=== PATIENT | female | born 1985 ===

== ENCOUNTER 2016-10-12 17:25 | Observation (INO) | payer MEDICAID, OTHER ==
[2016-10-12 17:25] VITALS: BMI 22.6
[2016-10-12] MEDS ORDERED: Sodium Chloride 0.9% 1,000 ML IV STA (18:03)
[2016-10-12] MEDS ORDERED: Iohexol 240 (50 ml) PO ONE (18:05)
--- NOTE | 2016-10-12 18:10 | ED PDOC ---
HPI: General Adult Time Seen by Provider: 10/12/16 17:54 Chief Complaint (Nursing): Dizziness/Lightheaded Chief Complaint (Provider): Dizziness and abd pain History Per: Patient History/Exam Limitations: no limitations Onset/Duration Of Symptoms: Days (Yesterday) Have you had recent travel within the past 21 days to any of the following countries: [place], [place], [place] or [place]?: No Current Symptoms Are (Timing): Still Present Additional Complaint(s): Pt. with dizziness like spinning sensation constant since last night. Also with lower abd pain constant since yesterday. Today she developed bloody stool. No headaches, chest pain, numbness, tingles, weakness, back pain, dysuria, vaginal dc. LMP 2 weeks ago. No leg pain. No nausea, vomit. No new food or drinks. Past Medical History Reviewed: Historical Data, Nursing Documentation, Vital Signs Vital Signs: Last Vital Signs Temp 98.9 F 10/12/16 17:27 Pulse 77 10/12/16 17:27 Resp 16 10/12/16 17:27 BP 104/63 10/12/16 17:27 Pulse Ox 98 10/12/16 18:15 - Medical History PMH: Migraine - Surgical History Surgical History: Appendectomy - Family History Family History: States: Unknown Family Hx - Living Arrangements Living Arrangements: With Family - Social History Current smoker - smoking cessation education provided: No Alcohol: None Drugs: Denies - Immunization History Hx Tetanus Toxoid Vaccination: Yes Hx Influenza Vaccination: Yes Hx Pneumococcal Vaccination: Yes - Home Medications Home Medications: Ambulatory Orders Medication Instructions Recorded Acetaminophen with Codeine 1 tab PO Q6 04/01/16 [Tylenol with Codeine No. 3 300 mg-30 mg] Bacitracin OINT 1 applic TP TID #60 g 04/01/16 Ibuprofen [Motrin Tab] 600 mg PO Q8 #30 tab 04/01/16 oxyCODONE/Acetaminophen [Percocet 1 tab PO QID PRN #30 tab 04/01/16 5/325 mg Tab] traMADol [Ultram] 50 mg PO TID 04/01/16 - Allergies Allergies/Adverse Reactions: Allergies Allergy/AdvReac Type Severity Reaction Status Date / Time mushroom Allergy RASH Verified 11/30/15 03:45 Review of Systems ROS Statement: Except As Marked, All Systems Reviewed And Found Negative Gastrointestinal: Positive for: Abdominal Pain, Hematochezia Neurological: Positive for: Dizziness Physical Exam - Reviewed Nursing Documentation Reviewed: Yes Vital Signs Reviewed: Yes - Physical Exam Appears: Positive for: Non-toxic, No Acute Distress Head Exam: Positive for: ATRAUMATIC, NORMAL INSPECTION, NORMOCEPHALIC Skin: Positive for: Normal Color, Warm, DRY Eye Exam: Positive for: EOMI, Normal appearance, PERRL ENT: Positive for: Normal ENT Inspection Neck: Positive for: Normal, Painless ROM Cardiovascular/Chest: Positive for: Regular Rate, Rhythm Respiratory: Positive for: CNT, Normal Breath Sounds Gastrointestinal/Abdominal: Positive for: Bowel Sounds, Soft, Tenderness ( diffuse), Distended (mild). Negative for: Guarding Back: Positive for: Normal Inspection. Negative for: L CVA Tenderness, R CVA Tenderness Extremity: Positive for: Normal ROM. Negative for: Tenderness, Pedal Edema Neurologic/Psych: Positive for: Alert, top inventory control executive II-XII, Oriented. Negative for: Motor/Sensory Deficits, Facial Droop - ECG ECG: Positive for: Interpreted By Me, Viewed By Me ECG Rhythm: Positive for: Normal QRS, Normal ST Segment, Sinus Rhythm O2 Sat by Pulse Oximetry: 98 Pulse Ox Interpretation: Normal - Progress ED Course And Treament: 1830: Dr. Jacobs to take over care. Fu on CT and labs. ED OBSERVATION Date of observation admission: 10/12/16 Time of observation admission: 18:15 - Observation admission statement Patient is being placed in observation because:: Pain and dizziness eval - Goals of Observation Goals of observation are:: Continue management Disposition - Clinical Impression Clinical Impression: Dizziness, Abdominal pain - Patient ED Disposition Is Patient to be Admitted: No - Disposition Disposition: Transfer of Care Disposition Time: 18:00 Condition: STABLE Patient Signed Over To: Medhat Jacobs
[2016-10-12] MEDS ORDERED: Iohexol 240 (50 ml) ONE (18:49)
[2016-10-12 19:15] LABS: BASO % 0.2 % (0.0-2.0); EOS # 0.1 K/uL (0.0-0.7); EOS % 0.9 % (0.0-4.0); HEMOGLOBIN 12.9 g/dL (12.0-16.0); LYMPH # 2.2 K/uL (1.0-4.3); LYMPH % 23.9 % (20.0-40.0); MEAN CELL VOLUME 93.8 fl (81.0-99.0); MEAN CORPUSCULAR HEMOGLOBIN 30.8 pg (27.0-31.0); MEAN CORPUSCULAR HGB CONC 32.8 g/dL (33.0-37.0); MEAN PLATELET VOLUME 10.8 fl (7.2-11.7); MONO # 0.4 K/uL (0.0-0.8); MONO % 4.9 % (0.0-10.0); NEUT # 6.4 K/uL (1.8-7.0); NEUT % 70.1 % (50.0-75.0); RBC 4.19 Mil/uL (3.80-5.20); RED CELL DISTRIBUTION WIDTH 13.5 % (11.5-14.5); WHITE BLOOD COUNT 9.1 K/uL (4.8-10.8)
[2016-10-12 19:21] LABS: ALB/GLOB RATIO 1.6 (1.0-2.1); ALT/SGPT 41 U/L (9-52); AST/SGOT 40 U/L (14-36); BLOOD UREA NITROGEN 15 mg/dl (7-17); GFR AFRICAN-AMERICAN > 60; GFR NON-AFRICAN AMERICAN > 60
[2016-10-12] MEDS ORDERED: Sodium Chloride 0.9% 50 ML IV ONE (19:28)
[2016-10-12] MEDS ORDERED: Iohexol 300 100 ML IJ ONE (19:28)
--- NOTE | 2016-10-12 21:43 | CT ---
EXAM: CT Abdomen and Pelvis With Intravenous Contrast CLINICAL HISTORY: 31 years old, female; Pain; Abdominal pain; Localized; Lower; Prior surgery; Surgery date: 6+ months; Surgery type: Append. Removed; Additional info: Abd pain TECHNIQUE: Axial computed tomography images of the abdomen and pelvis with intravenous contrast. This CT exam was performed using one or more of the following dose reduction techniques: automated exposure control, adjustment of the mA and/or kV according to patient size, and/or use of iterative reconstruction technique. Coronal and sagittal reformatted images were created and reviewed. CONTRAST: 90 mL of [id number] administered intravenously. EXAM DATE/TIME: 10/12/2016 6:04 PM COMPARISON: Prior CT abdomen and pelvis of 09/02/2015 FINDINGS: LOWER THORAX: No infiltrate seen in the lung bases. ABDOMEN: LIVER: Fatty infiltration of the liver. GALLBLADDER AND BILE DUCTS: The gallbladder wall enhances, most likely secondary to partial gallbladder contraction. No evidence of acute cholecystitis or radiopaque gallstones. PANCREAS: No CT evidence of acute pancreatitis. SPLEEN: No acute abnormality of the spleen identified. ADRENALS: No acute abnormality of the adrenal glands identified. KIDNEYS AND URETERS: No acute abnormality of the kidneys identified. No evidence of significant hydrouereteronephrosis. STOMACH AND BOWEL: No acute abnormality of the stomach, small bowel or colon identified. No evidence of bowel obstruction. APPENDIX: Normal appendix is not seen, and there is a reported history of previous appendectomy. PELVIS: BLADDER: No acute abnormality of the bladder identified. REPRODUCTIVE: 1.9 cm cystic lesion with a thin, enhancing and collapsed soft tissue rim in the right ovary. This has an appearance suggestive of a recently ruptured/involuting ovarian cyst, such as a corpus luteal cyst. Followup pelvic ultrasound as clinically indicated. No acute abnormality of the uterus identified. ABDOMEN and PELVIS: INTRAPERITONEAL SPACE: No evidence of free intraperitoneal air or fluid. BONES/JOINTS: No acute fractures or other acute bony abnormality noted. SOFT TISSUES: Grossly stable appearance of diffuse subcutaneous fat infiltration and extensive mostly round/nodular subcutaneous densities of varying sizes in the gluteal soft tissues bilaterally. Findings are presumably secondary to chronic injections, although cellulitis could also have this appearance.There is no evidence of soft tissue gas. VASCULATURE: No evidence of abdominal aortic aneurysm. No evidence of periaortic hemorrhage. LYMPH NODES: No evidence of diffuse lymphadenopathy. IMPRESSION: - Abnormal findings in the gluteal soft tissues bilaterally, also seen on a prior exam, which are presumably secondary to chronic subcutaneous injections, although cellulitis could also have this appearance, and recommend clinical correlation. - See above for remaining findings.
--- NOTE | 2016-10-12 21:58 | ED PDOC ---
- Laboratory Results Result Diagrams: 10/12/16 18:41 10/12/16 18:41 - ECG O2 Sat by Pulse Oximetry: 98 Pulse Ox Interpretation: Normal Medical Decision Making Medical Decision Making: Pt. signed out to me by Dr. Jaimes pending CT. 945PM: IMPRESSION: - Abnormal findings in the gluteal soft tissues bilaterally, also seen on a prior exam, which are presumably secondary to chronic subcutaneous injections, although cellulitis could also have this appearance, and recommend clinical correlation. - See above for remaining findings. Pt. feeling better, explained results. Encouraged f/u w/ GI. Will prescribe PPI. Pt. currently taking lamotrigine, Tylenol 3, advised to take plenty of fluids with meds and that they also may cause dizziness. Return precautions given. Disposition - Clinical Impression Clinical Impression: Dizziness, Abdominal pain - POA Present On Arrival: None - Disposition Disposition: Routine/Home Disposition Time: 21:30 Condition: STABLE
[2016-10-12 22:07] VITALS: BP 133/71; PULSE 82; RESP 18; TEMP 97.8; O2SAT 100
--- NOTE | 2016-10-13 07:34 | CARD ---
APPROVED REPORT EKG Measurement Heart [id number] ID [id number] <Conclusion> Normal sinus rhythm with sinus arrhythmia Normal ECG
== END 2016-10-12 22:00 | disposition home or self-care (01) ==
LOC: H.ER 17:25 → H.EROBSV 18:05
PROVIDERS: ADMIT Emergency Medicine; ATTEND Emergency Medicine
DX: R42 Dizziness and giddiness (principal); R10.9 Unspecified abdominal pain

== ENCOUNTER 2018-03-18 10:25 | Emergency (ER) | payer MEDICAID ==
[2018-03-18 10:28] VITALS: BMI 21.9
[2018-03-18 10:29] VITALS: TEMP 98.7; O2SAT 100
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
[2018-03-18 12:15] VITALS: BP 108/64; PULSE 68; RESP 18
--- NOTE | 2018-03-18 17:51 | RAD ---
Date of service: 03/18/2018 PROCEDURE: Left Knee Radiographs. HISTORY: Pain. COMPARISON: Bilateral knee radiographs 08/24/2015. FINDINGS: BONES: No acute fracture or destructive bony lesion identified. JOINTS: Normal. No osteoarthritis. JOINT EFFUSION: None. OTHER FINDINGS: None. IMPRESSION: Unremarkable, stable radiographs of the left knee.
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
== END 2018-03-18 11:48 | disposition home or self-care (01) ==
LOC: H.ER 10:25
DX: S43.401A Unspecified sprain of right shoulder joint, initial encounter (principal); S80.02XA Contusion of left knee, initial encounter; V43.62XA Car passenger injured in collision with other type car in traffic accident, initial encounter; Y92.410 Unspecified street and highway as the place of occurrence of the external cause